=== PATIENT | male | born 1980 | race Hispanic/Latino ===

== ENCOUNTER 2017-11-21 14:58 | Emergency (ER) | payer SELFPAY ==
[2017-11-21 16:56] LABS: Bilirubin Negative (Negative); Blood, Urine Negative (Negative); Clarity CLOUDY (Clear); Glucose, Urine (Dipstick) Negative (Negative); Leukocyte Negative (Negative); Nitrite Negative (Negative); Protein, Urine (Dipstick) Negative (Neg-Trace); Specific Gravity, Urine 1.021 (1.002-1.036); pH, Urine 6.5 (5.0-9.0)
[2017-11-21 17:00] LABS: #Eosinphils 0.1 thou/uL (0.0-0.7); #Lymphocytes 1.6 thou/uL (1.20-3.40); #Monocytes 0.6 thou/uL (0.11-0.59); #Neutrophils 3.9 thou/uL (1.40-6.50); %Basophils 0.3 % (0.0-1.0); %Eosinophils 0.9 % (0.0-10.0); %Lymphocytes 25.5 % (21.0-51.0); %Neutrophils 63.4 % (42.0-75.0); Hemoglobin 17.4 g/dL (14.0-18.0); Mean Corpuscular Volume 96.7 fl (80.0-94.0); Mean Platelet Volume 6.7 fL (7.4-10.4); Platelet Count 303 thou/uL (130-400); RBC Distribution Width 11.7 % (11.5-14.5); Red Blood Cell (RBC) Count 5.44 mill/uL (4.70-6.10); White Blood Cell (WBC) Count 6.1 thou/uL (4.8-10.8)
[2017-11-21 17:05] LABS: Medtox Reader # READER 1; Phencyclidine (PCP) Not Detected (NotDetected); THC/Cannabinoid Screen Not Detected (NotDetected)
[2017-11-21 17:06] LABS: Amphetamine Not Detected (NotDetected); Barbiturates Screen Not Detected (NotDetected); Benzodiazepine Screen Not Detected (NotDetected); Cocaine Metabolite Screen Not Detected (NotDetected); Medtox Control Line Valid? VALID (VALID); Methadone Not Detected (NotDetected); Methamphetamine Not Detected (NotDetected); Opiate Screen Not Detected (NotDetected); Oxycodone Screen Not Detected (NotDetected); Tricyclic Screen Not Detected (NotDetected)
[2017-11-21 17:20] LABS: ALT (SGPT) 54 U/L (8-55); AST (SGOT) 40 U/L (5-34); Acetaminophen Less than 6.0 mcg/mL (10.0-30.0); Alcohol Less than 10 mg/dL (Less than 10); Alkaline Phosphatase 89 U/L (40-150); Anion Gap 15 mmol/L (10-20); BUN (Urea Nitrogen) 10 mg/dL (8.9-20.6); Bilirubin, Total 0.6 mg/dL (0.2-1.2); CK (CPK) 154 U/L (30-200); Calc. Creatinine Clearance 0 mL/min (70-130); Calcium 10.3 mg/dL (7.8-10.44); Carbon Dioxide 26 mmol/L (22-29); Chloride 103 mmol/L (98-107); Estimated GFR-MDRD Greater than 90; Globulin 3.6 g/dL (2.4-3.5); Glucose 98 mg/dL (70-105); Potassium 3.4 mmol/L (3.5-5.1); Protein, Total 8.6 g/dL (6.0-8.3); Salicylate Less than 8.0 mg/dL (15.0-30.0); Sodium 141 mmol/L (136-145)
[2017-11-21 17:25] LABS: CKMB 1.3 ng/mL (0-6.6); Troponin I 0.015 ng/mL (< 0.028)
[2017-11-21] MEDS ORDERED: hydrOXYzine 25 MG TAB ONE (19:34)
--- NOTE | 2017-11-23 11:19 | EKG ---
Test Reason : SI Blood Pressure : / mmHG Vent. Rate : 076 BPM Atrial Rate : 076 BPM P-R Int : 144 ms QRS Dur : 086 ms QT Int : 382 ms P-R-T Axes : 033 009 027 degrees QTc Int : 429 ms Normal sinus rhythm Normal ECG Confirmed by SADIA JANG M.D. ([id number]), acquisition editor MIGUEL WINSTON ([id number]) on 11/23/2017 11:18:28 AM Referred By: Confirmed By:SADIA JANG M.D.
== END 2017-11-21 19:46 | disposition home or self-care (01) ==
LOC: ERS 14:58
DX: F41.9 Anxiety disorder, unspecified (principal); F32.9 Major depressive disorder, single episode, unspecified
CPT/HCPCS: 80053; 80306; 80307; 81003; 82550; 82553; 84443; 84484; 85025; 93005